=== PATIENT | female | born 1995 | race Caucasian/White ===

== ENCOUNTER 2018-12-16 22:12 | Observation (INO) | payer OTHER ==
[2018-12-16] MEDS ORDERED: Morphine 4 MG/ML VIAL ONE (23:08)
[2018-12-17] MEDS ORDERED: Crotalidae Polyvlnt Antivenin 2 GM in Sodium Chloride 0.9% 250 ML 250 ML IVPB PRN (00:45)
[2018-12-17] MEDS ORDERED: HYDROmorphone 0.5 MG/0.5 ML SYRINGE ONE ×2 (00:48→03:31)
--- NOTE | 2018-12-17 03:55 | PDOC.FPRHP ---
- History of Present Illness Chief Complaint: rattlesnake bite History of Present Illness: Pt was walking to her car when she was bit by what she thinks was a rattlesnake. She states the pain was severe. She reached the ED within 20-30 minutes of being bitten. She received one dose of Crofab before being transferred to [facility] from [place]. Pt received dilaudid in the ED for pain control and denies any pain at time of my evaluation of her. - Allergies/Adverse Reactions Allergies Allergy/AdvReac Type Severity Reaction Status Date / Time No Known Allergies Allergy Verified 12/17/18 05:29 - Home Medications Medication Instructions Recorded Confirmed Type No Known 12/17/18 12/17/18 History - History PMHx: genital herpes, copper head snake bite not requiring crofab. PSHx: none FHx: non-contributory Social: Denies smoking, etoh, or drug use. - Review of Systems General: reports: other (recent cold for X2 weeks). denies: fever/chills, weight/appetite/sleep changes Eyes: denies: eye pain, vision changes ENT: reports: nasal congestion Respiratory: reports: cough, congestion, shortness of breath Cardiovascular: reports: edema. denies: chest pain, palpitation Gastrointestinal: denies: nausea, vomiting, diarrhea, constipation, abdominal pain Genitourinary: denies: incontinence Skin: reports: other (puncture snake bite wounds). denies: rashes, lesions, jaundice Musculoskeletal: reports: pain, tenderness, stiffness, swelling Neurological: reports: numbness (left thigh). denies: syncope, seizure, weakness Psychological: denies: anxiety - Vital signs BP: 115/96 HR: 68 RR: 17 Tmax: Pox: 100% on RA - Physical Exam Constitutional: NAD, awake, alert and oriented, well developed HEENT: normocephalic and atraumatic, PERRLA, EOMI, conjunctiva clear, no scleral icterus, grossly normal vision, grossly normal hearing, MMM, other ( tonsilar enlargement bilaterally. Erythematous posterior pharynx) Neck: supple, FROM, trachea midline, no JVD, other (Cervical LAD) Chest: no-tender to palpation, no lesions Heart: RRR, normal S1/S2, no murmurs/rubs/gallops, pulses present Lungs: CTAB, no respiratory distress, good air movement, no rales/rhonchi, no wheezing, no retractions Abdomen: soft, non-tender, bowel sounds present, no masses/distention, no hernias Musculoskeletal: normal structure, normal tone, other (decreased ROM from pain of left ankle) -Musculoskeletal: LLE ankle swelling. left posterior tibials pulse weaker than right, but 1+. 2+ dorsalis pedis pulse bilaterally. Neurological: no focal deficit, CN II-XII intact, normal sensation, DTRs 2+ Skin: good turgor, capillary refill <2 seconds, no jaundice, other (erythema overlying medial left ankle. 2 pinpoint puntate lesion over medial ankle.) Heme/Lymphatic: no purpura, no petechia Psychiatric: normal mood and affect, good judgment and insight, intact recent and remote memory FMR H&P: Results - Labs Result Diagrams: 12/17/18 08:56 Lab results: PTT 26.9, WBC 12., INR 1.0, Fibrinogen 491, CPK 24 Cr 0.8, BUN 20 FMR H&P: A/P - Problem List (1) Venomous snake bite Current Visit: Yes Status: Acute Code(s): T63.004A - TOXIC EFFECT OF UNSP SNAKE VENOM, UNDETERMINED, INIT ENCNTR Qualifiers: Encounter type: subsequent encounter Injury intent: accidental or unintentional Qualified Code(s): T63.001D - Toxic effect of unspecified snake venom, accidental (unintentional), subsequent encounter (2) Hx of herpes genitalis Current Visit: Yes Status: Chronic Code(s): Z86.19 - PERSONAL HISTORY OF OTHER INFECTIOUS AND PARASITIC DISEASES - Plan 23 y/o F being admitted to observation for a suspected rattlesnake bite to the LLE. 1. Rattlesnake bite to Left medial ankle - continue Crofab until asymptomatic - Morphine for pain control - No active bleeding at this time. LLE neurovascularly intact. - Monitor for swelling and pain - Repeat CBC, Fibrinogen, PT/INR, PTT @0900 2. Hx of Genital Herpes - Takes valacyclovir with breakouts. - No reported current breakout Full code Diet: regular diet DVT ppx: none, SCD's would cover snake bite. No lovenox with possible coagulopathy from snake venom. Disposition/LOS: Pt stable, admitted for observation of snake bite. Less than 2 midnights estimated stay. FMR H&P: Upper Level - Pertinent history 23 yo female presents via EMS transfer from [place] due to suspected rattlesnake bite. She is unsure what type of snake bit her due to not seeing it , but she believes she heard a rattle. She notes localized swelling and pain in her right ankle/foot. Please see internet programmer note above for further information. General: Female appears stated age, NAD HEENT: Moist mucous membranes CV: Regular rate and regular rhythm, no murmurs Respiratory: CTA-bilaterally Abdomen: Soft, nontender, no distention Normoactive BS Extremities: Moving all four symmetrically. Localized edema and redness to Right ankle and foot. Redness currently within previous outline. Neuro: No focal deficits Psych: A&O x3 - Plan Date/Time: 12/17/18 5629 I, Janes Bruno MD, have evaluated this patient and agree with findings/ plan as outlined by internet programmer resident. Pertinent changes/additions are listed here. 1. Snake bite - s/p 3 doses of Crofab - Continue Crofab until symptoms controlled/resolved - Low suspicion for continued need of Crofab - labs WNL, will repeat in AM - Pain control with opioids as needed PCP: Dr. Jimenez CODE STATUS: FULL CODE Disposition: Stable, will admit for observation and further monitoring. Addendum - Attending - Attending Attestation Date/Time: 12/17/18 1040 I personally evaluated the patient and discussed the management with Dr. Myers. I agree with the History, Examination, Assessment and Plan documented above with any addition or exceptions noted below. The patient was admitted overnight after being bitten on the left ankle by what she thinks was a rattlesnake as she heard it rattle. She is on the snake protocol and has received crofab x 3. The swelling in the leg is within the margins that have been drawn. She has pain meds ordered. Pt is also complaining of nasal congestion, will add prn meds. Getting pt to see her to help with ambulation.
[2018-12-17] MEDS ORDERED: Ondansetron ODT 4 MG TAB PO PRN (05:07)
[2018-12-17] MEDS ORDERED: Morphine 2 MG/ML SYRINGE SLOW IVP PRN (05:07)
[2018-12-17 05:20] VITALS: BMI 20.9
[2018-12-17 09:28] LABS: #Lymphocytes 2.6 thou/uL (1.20-3.40); #Neutrophils 8.1 thou/uL (1.40-6.50); %Basophils 0.2 % (0.0-1.0); %Eosinophils 0.4 % (0.0-10.0); %Lymphocytes 21.7 % (21.0-51.0); %Monocytes 8.5 % (0.0-10.0); %Neutrophils 69.2 % (42.0-75.0); Hemoglobin 11.5 g/dL (12.0-16.0); Mean Corpuscular HGB CONC 33.7 g/dL (32.0-36.0); Mean Corpuscular Hemoglobin 29.6 pg (27.0-31.0); Mean Corpuscular Volume 87.7 fL (78.0-98.0); Mean Platelet Volume 6.9 fL (7.4-10.4); Platelet Count 233 thou/uL (130-400); RBC Distribution Width 11.6 % (11.5-14.5); White Blood Cell (WBC) Count 11.8 thou/uL (4.8-10.8)
[2018-12-17 09:37] LABS: PTT 26.6 SEC (22.9-36.1)
[2018-12-17 09:38] LABS: INR-International Normal Ratio 1.1; Prothrombin Time 14.7 SEC (12.0-14.7)
[2018-12-17] MEDS ORDERED: Fluticasone Propionate Nasal Spray 16 gm Bottle NASAL PRN (11:07)
[2018-12-17] MEDS ORDERED: guaiFENesin ER 600 MG TAB PO PRN (11:07)
[2018-12-17] MEDS ORDERED: guaiFENesin ER 600 MG TAB PO SCH (21:00)
[2018-12-18 05:27] LABS: #Eosinphils 0.1 thou/uL (0.0-0.7); #Lymphocytes 2.7 thou/uL (1.20-3.40); #Monocytes 0.8 thou/uL (0.11-0.59); #Neutrophils 6.6 thou/uL (1.40-6.50); %Basophils 0.3 % (0.0-1.0); %Eosinophils 1.1 % (0.0-10.0); %Lymphocytes 26.6 % (21.0-51.0); %Monocytes 7.8 % (0.0-10.0); %Neutrophils 64.3 % (42.0-75.0); Hemoglobin 12.9 g/dL (12.0-16.0); Mean Corpuscular Hemoglobin 30.1 pg (27.0-31.0); Mean Corpuscular Volume 88.5 fL (78.0-98.0); Mean Platelet Volume 6.4 fL (7.4-10.4); Platelet Count 256 thou/uL (130-400); RBC Distribution Width 11.6 % (11.5-14.5); Red Blood Cell (RBC) Count 4.29 mill/uL (4.20-5.40); White Blood Cell (WBC) Count 10.2 thou/uL (4.8-10.8)
--- NOTE | 2018-12-18 05:28 | PDOC.FM ---
- Subjective Subjective: Patient doing well this morning. Reports that her foot is still painful to dorsiflex, plantarflex, and move from side to side, but less so than yesterday. Erythema and swelling have nearly resolved. Has not met with PT yet. Nausea and congestion improved from yesterday. - Objective Vital Signs & Weight: Vital Signs (12 hours) Temp Pulse Resp BP BP Pulse Ox 12/18/18 03:27 98.3 F 74 16 107/56 L 97 12/17/18 23:18 98.3 F 74 16 105/68 99 12/17/18 20:00 98.3 F 74 16 105/68 99 12/17/18 19:34 98.3 F 74 16 105/68 99 Weight Weight 58.967 kg I&O: 12/16/18 12/17/18 12/18/18 06:59 06:59 06:59 Intake Total 510 Balance 510 Result Diagrams: 12/18/18 05:00 Phys Exam - Physical Examination Constitutional: NAD HEENT: moist MMs, sclera anicteric Neck: supple, full ROM Respiratory: no wheezing, clear to auscultation bilateral Cardiovascular: RRR, no significant murmur Gastrointestinal: soft, non-tender Musculoskeletal: no edema, pulses present Left ankle shows no erythema or edema; bite loving apparent without pus Neurological: normal sensation, moves all 4 limbs Lymphatic: no nodes Psychiatric: normal affect, A&O x 3 Skin: normal turgor, cap refill <2 seconds Dx/Plan (1) Venomous snake bite Code(s): T63.004A - TOXIC EFFECT OF UNSP SNAKE VENOM, UNDETERMINED, INIT ENCNTR Status: Acute Qualifiers: Encounter type: subsequent encounter Injury intent: accidental or unintentional Qualified Code(s): T63.001D - Toxic effect of unspecified snake venom, accidental (unintentional), subsequent encounter (2) Hx of herpes genitalis Code(s): Z86.19 - PERSONAL HISTORY OF OTHER INFECTIOUS AND PARASITIC DISEASES Status: Chronic - Plan Plan: 23 y/o F being admitted to observation for a suspected rattlesnake bite to the [facility]. #Rattlesnake bite to Left medial ankle - Received 3 doses of Crofab before admission - edema and erythema markedly improved, based on markings drawn around the area - Labs wnl today, WBC 10.2, PT 14.6, INR 1.1, PTT 28.9, Fibrinogen 445 - Morphine for pain control, only required 1 dose yesterday - No active bleeding at this time. LLE neurovascularly intact, patient reports continued pain with movement, though it has improved - Monitor for swelling and pain - PT evaluation today #Hx of Genital Herpes - Takes valacyclovir with breakouts. - Controlled at this time Code: Full code Diet: regular diet DVT ppx: none, SCD's would cover snake bite. No lovenox with possible coagulopathy from snake venom. Disposition/LOS: Pt stable, likely d/c today after PT evaluation Addendum - Attending - Attending Attestation Date/Time: 12/18/18 2162 I personally evaluated the patient and discussed the management with Dr. Collins. I agree with the History, Examination, Assessment and Plan documented above with any addition or exceptions noted below. The patient is feeling better. Still has pain in her ankle. Will d/c home on crutches. f/u with PCP as outpt.
[2018-12-18 05:32] LABS: INR-International Normal Ratio 1.1; PTT 28.9 SEC (22.9-36.1); Prothrombin Time 14.6 SEC (12.0-14.7)
[2018-12-18] MEDS ORDERED: Fluticasone Propionate Nasal Spray 16 gm Bottle NASAL SCH (09:00)
[2018-12-18 11:43] VITALS: BP 117/71; TEMP 98.6
--- NOTE | 2018-12-19 05:39 | DIS ---
DATE OF ADMISSION: 12/17/2018 DATE OF DISCHARGE: 12/18/2018 ADMITTING RESIDENT: Belen Myers DO ADMITTING ATTENDING: Marielos Jimenez MD DISCHARGE RESIDENT: Elizabeth Collins MD DISCHARGE ATTENDING: Marielos Jimenez MD CONSULTS: Physical Therapy. PROCEDURES: None. PRIMARY DIAGNOSIS: Venomous snake bite. SECONDARY DIAGNOSIS: Genital herpes. No active outbreaks. DISCHARGE MEDICATIONS: None. DISCONTINUED MEDICATIONS: 1. CroFab. 2. Mucinex. 3. Fluticasone. 4. Morphine. 5. Zofran. HISTORY OF PRESENT ILLNESS/HOSPITAL COURSE: The patient presented to the [facility] ED after a snake bite. No snake was seen, but the patient reported hearing a rattle. She was found to have a white blood cell count of 12, PTT 26.9, INR 1.0. Fibrinogen 491, CPK 24, creatinine 0.8, BUN 20. She was evaluated and given one dose of CroFab before being transferred to [facility]. Upon arrival, she received two doses of CroFab and Dilaudid for pain control. Erythema and edema surrounding the bite were marked and monitored. Repeat labs after receiving the two doses of CroFab at [facility], making a three total doses, revealed white blood cell count 11.8, PT 14.7, PTT 26.6, INR 1.1, and fibrinogen 362. Labs the following day were within normal limits. The erythema and edema have almost completely resolved. However, there was some slight bruising that was trying to appear. PT evaluated the patient and gave her crutches to take home upon discharge. DISPOSITION: Stable. DISCHARGE INSTRUCTIONS: 1. Location: Home. 2. Diet: Regular. 3. Activity: As tolerated. 4. Followup: Followup with PCP within one week for re-evaluation of snake bite. Job ID: [id number] MTDD
== END 2018-12-18 15:05 | disposition home or self-care (01) ==
LOC: ERS 22:12 → SURG B 12-17 00:42
PROVIDERS: ADMIT Student in an Organized Health Care Education/Training Program; ATTEND Student in an Organized Health Care Education/Training Program
DX: T63.001A Toxic effect of unspecified snake venom, accidental (unintentional), initial encounter (principal); Z86.19 Personal history of other infectious and parasitic diseases
CPT/HCPCS: 36415; 85025; 85384; 85610; 85730; 96365; 96375; 96376; G0378; J0840; J1170; J2270; J7050; Q0162